=== PATIENT | female | born 2000 | race Caucasian/White ===

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

== ENCOUNTER → 2022-10-15 | Outpatient (CLI) | payer BC ==
[~2022-10-15] MED LIST: OMEPRAZOLE20 M2 PO
== END | disposition home or self-care (01) ==
LOC: RAD 13:10
PROVIDERS: ATTEND Student in an Organized Health Care Education/Training Program
DX: M54.50 Low back pain, unspecified (principal)

== ENCOUNTER 2024-06-02 14:28 | Emergency (ER) | payer OTHER, BC ==
[~2024-06-02] VITALS: Ht 157.4 cm; Wt 77.1 kg
[2024-06-02] MEDS ORDERED: ACETAMINOPHEN 325 MG TAB PO ONE (14:50)
[2024-06-02] MEDS ORDERED: Lidocaine Hydrochloride 2 ML AMP SC ONE (14:55)
== END 2024-06-02 17:29 | disposition home or self-care (01) ==
LOC: ED 14:28
DX: S01.81XA Laceration without foreign body of other part of head, initial encounter (principal); R68.84 Jaw pain; V89.2XXA Person injured in unspecified motor-vehicle accident, traffic, initial encounter; Y93.89 Activity, other specified; Y92.410 Unspecified street and highway as the place of occurrence of the external cause; Y99.8 Other external cause status